=== PATIENT | female | born 2000 | race African-American/Black ===

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

== ENCOUNTER 2018-08-20 12:36 | Emergency (ER) | payer BC | END 2018-08-20 13:34 | disposition home or self-care (01) | LOC: ERS 12:36 | DX: R11.2 Nausea with vomiting, unspecified (principal); R19.7 Diarrhea, unspecified | CPT/HCPCS: 99283 ==

== ENCOUNTER 2018-11-11 14:38 | Emergency (ER) | payer BC | END 2018-11-11 15:25 | disposition home or self-care (01) | LOC: ERS 14:38 | DX: J30.9 Allergic rhinitis, unspecified (principal) | CPT/HCPCS: 87081; 87430; 99283 ==

== ENCOUNTER 2020-05-06 08:13 | Emergency (ER) | payer BC | END 2020-05-06 08:50 | disposition home or self-care (01) | LOC: ERS 08:13 | DX: L29.0 Pruritus ani (principal); B80 Enterobiasis | CPT/HCPCS: 99282 ==